=== PATIENT | male | born 1940 | race Caucasian/White ===

== ENCOUNTER → 2017-05-24 | Outpatient (CLI) | payer OTHER ==
[~2017-05-24] MED LIST: GLUCOSAMINE; LISINAPRIL; ULORIC; WARFARIN
[2017-05-24 09:45] LABS: Basophils # (auto) 0 uL; Basophils % (auto) 0.4 % (0.0-2.0); Eosinophils # (auto) 0.5 uL; Eosinophils % (auto) 4.9 % (0.0-7.0); Hematocrit 47.2 % (41.0-53.0); Hemoglobin 16.1 g/dL (13.5-17.5); Lymphocytes # (auto) 1.3 uL; Lymphocytes % (auto) 13.3 % (10.0-50.0); Mean Corpuscular Hemoglobin 31.7 pg (28.0-32.0); Mean Corpuscular Volume 93.2 fL (80.0-100.0); Mean Platelet Volume 7.7 fL (6.9-10.8); Monocytes # (auto) 0.8 uL; Monocytes % (auto) 7.9 % (0.0-12.0); Neutrophils # (auto) 7.5 uL; Neutrophils % (auto) 73.5 % (37.0-80.0); Platelet Count (auto) 130 10^3/uL (140-450); White Blood Cell 10.1 10^3/uL (4.4-10.8)
[2017-05-24 10:03] LABS: Urine Bilirubin Negative (Negative); Urine Blood 1+ /uL (Negative); Urine Color Yellow (Yellow); Urine Glucose Normal (Normal); Urine Ketone Negative (Negative); Urine Mucus FEW (None Seen); Urine Nitrite Negative (Negative); Urine RBC 5 /hpf (0 - 3); Urine Squamous Epithelial Cell FEW /hpf (<5); Urine Urobilinogen Normal (Negative); Urine pH 5.5 (5.0-8.0)
[2017-05-24 10:13] LABS: Albumin 3.5 g/dL (3.4-5.0); BUN/Creatinine Ratio 15.9; Bilirubin, Total 0.9 mg/dL (0.2-1.0); Calcium 8.7 mg/dL (8.5-10.1); Potassium 4.4 mmol/L (3.5-5.1); Total Protein 7.1 g/dL (6.4-8.2); Uric Acid 8.7 mg/dL (3.5-7.2)
== END | disposition home or self-care (01) ==
LOC: LAB 09:16
PROVIDERS: ATTEND Family Medicine
DX: I10 Essential (primary) hypertension (principal); M10.9 Gout, unspecified
CPT/HCPCS: 36415; 80053; 80061; 81001; 84550; 85025

== ENCOUNTER → 2017-07-17 | Outpatient (CLI) | payer OTHER | END | disposition home or self-care (01) | LOC: LAB 10:00 | DX: L08.9 Local infection of the skin and subcutaneous tissue, unspecified (principal) ==

== ENCOUNTER 2017-09-15 14:18 | Emergency (ER) | payer OTHER ==
[~2017-09-15] VITALS: Ht 165.1 cm; Wt 63.5 kg
[2017-09-15 16:18] VITALS: BP 167/87
== END 2017-09-15 16:58 | disposition home or self-care (01) ==
LOC: ER 14:27
DX: S00.83XA Contusion of other part of head, initial encounter (principal); L72.0 Epidermal cyst; J44.9 Chronic obstructive pulmonary disease, unspecified; I10 Essential (primary) hypertension; F17.210 Nicotine dependence, cigarettes, uncomplicated; W01.0XXA Fall on same level from slipping, tripping and stumbling without subsequent striking against object, initial encounter; Y93.89 Activity, other specified; Y99.8 Other external cause status; Y92.89 Other specified places as the place of occurrence of the external cause
CPT/HCPCS: 70450

== ENCOUNTER 2025-02-16 13:52 | Emergency (ER) | payer OTHER ==
[~2025-02-16] VITALS: Ht 165.1 cm; Wt 60.3 kg
--- NOTE | 2025-02-16 15:13 | ED.PDOC ---
GI ASSESSMENT HPI Comments 84 y.o male presents to the ED for a chief complaint of constipation with last BM being 6 days ago. Patient reports now complains of generalized abdominal pain with nausea and is unable to eat due to fear of pain increasing. Patient has been taking two stool softeners per day including today and had no relief. Additionally, patient took Miralax and 2 suppositories prior to coming into the ED and had no relief. He denies any vomiting, fever, chills. Patient was recently diagnosed with Parkinson's and was told by PCP that constipation is common with dx. He has been hydrating himself well at home. Chief Complaint: Constipation Time Seen by : 15:00 Primary Care Provider: IVONE Reviewed Notes: Nurses Notes, Medications, Allergies Allergies: Coded Allergies: NO KNOWN ALLERGIES (Unverified , 02/16/25) Home Meds Active Scripts Levofloxacin Hemihydrate (LEVOFLOXACIN) 250 Mg Tab, 250 MG PO DAILY for 10 Days, #10 TAB Prov:SEJAL MANNING MD 02/16/25 Polyethylene Glycol (Miralax) 17 Gm/Scoop Pow, 17 GM GT DAILY for 90 Days, #1 POW Prov:SEJAL MANNING MD 02/16/25 Sennosides-Docusate Sodium (Senokot S) 1 Tab Tab, 1 TAB PO BID, #30 TAB Prov:SEJAL MANNING MD 02/16/25 Ondansetron Odt 4MG Tab (ZOFRAN PO) 4 Mg Tb, 4 MG PO TID PRN for 5 Days, #15 TAB ODT TAB-DISSOLVE IN MOUTH, THEN SWALLOW Prov:SEJAL MANNING MD 02/16/25 Reported Medications [Glucosamine] No Conflict Check, BID 06/15/10 [Uloric] No Conflict Check, DAILY 06/15/10 [Lisinapril] No Conflict Check, DAILY 06/15/10 [Warfarin] No Conflict Check, DAILY 06/15/10 Information Source: Patient, Spouse Mode of Arrival: Ambulatory Timing: Days (6) Duration: Since onset Quality: Aching Vomitus: None Stool: Empty Severity: Moderate Recent: None Recent Hx of: None Pain Location: Diffuse Modifying Factors: Nothing Associated sign and symptoms: Nausea, Constipation, Abdominal Pain Past Medical History PAST MEDICAL HISTORY: COPD, HTN, Kidney Stones Past Medical History (Other): Rheumatoid arthritis, Factor 5 Leiden, Parkinsons Surgical History (Other): Vasectomy Family History Family History: Reviewed,noncontributory to illness Social History Smoker: Non-Smoker Alcohol: Denies ETOH Use Drugs: Denies Drug Use Lives In: Home Constitutional: denies: chills, diaphoresis, fatigue, fever, malaise, sweats, weakness, others EENTM: denies: blurred vision, double vision, ear bleeding, ear discharge, ear drainage, ear pain, ear ringing, eye pain, eye redness, hearing loss, mouth pain, mouth swelling, nasal discharge, nose bleeding, nose congestion, nose pain, photophobia, tearing, throat pain, throat swelling, voice changes, others Respiratory: denies: cough, hemoptysis, orthopnea, SOB at rest, shortness of breath, SOB with excertion, stridor, wheezing, others Cardiovascular: denies: chest pain, dizzy spells, diaphoresis, Dyspnea on exertion, edema, irregular heart beat, left arm pain, lightheadedness, palpitations, PND, syncope, others Gastrointestinal: reports: abdominal pain, constipated, nausea; denies: abdomen distended, blood streaked bowels, diarrhea, dysphagia, difficulty swallowing, hematemesis, melena, poor appetite, poor fluid intake, rectal bleeding, rectal pain, vomiting, others Genitourinary: denies: burning, dysuria, flank pain, frequency, hematuria, incontinence, penile discharge, penile sore, pain, testicle pain, testicle swelling, urgency, others Neurological: denies: dizziness, fainting, headache, left sided numbness, left sided weakness, numbness, paresthesia, pre-existing deficit, right sided numbness, right sided weakness, seizure, speech problems, tingling, tremors, weakness, others Musculoskeletal: denies: back pain, gout, joint pain, joint swelling, muscle pain, muscle stiffness, neck pain, others Integumetry: denies: bruises, change in color, change in hair/nails, dryness, laceration, lesions, lumps, rash, wounds, others Allergic/Immunocompromised: denies: Difficulty Healing, Frequent Infections, Hives, Itching, others Hematologic/Lymphatic: denies: anemia, blood clots, easy bleeding, easy bruising, swollen glands, others Endocrine: denies: excessive hunger, excessive sweating, excessive thirst, excessive urination, flushing, intolerance to cold, intolerance to heat, unexplained weight gain, unexplained weight loss, others Psychiatric: denies: anxiety, bipolar disorder, depression, hopeless, panic disorder, schizophrenia, sleepless, suicidal, others All Other Systems: Reviewed and Negative Physical Exam General Appearance: No Apparent Distress HEENT: Other (Pupils and face symmetric. Dry mucous membranes.) Neck: Full Range of Motion, Normal Inspection Respiratory: Lungs Clear, No Accessory Muscle Use, No Respiratory Distress, Normal Breath Sounds Cardiovascular: No Edema, No JVD, Regular Rate/Rhythm Breast Exam: Deferred Gastrointestinal: Diffuse, Distended, Soft, Tenderness Genitalia: Deferred Pelvic: Deferred Rectal: Deferred Extremities: Normal inspection, Normal range of motion, Non-tender, No pedal edema Neurologic: Alert (Oriented x4), Normal Affect, Normal Mood, Other (Moves all extremities and follows commands. No gross focal deficit.) Cerebellar Function: NOT DONE Reflexes: NOT DONE Skin: Dry, Normal Color, Warm Lymphatic: NOT DONE Was a procedure done? Was a procedure done?: No GI differential Dx Differential Diagnosis: Bowel Obstruction, Constipation, Diverticular disease, Inflammatory BD, Ischemic Bowel, Dehydration, Electrolyte Imbalance, Bacterial, Viral, Impaction, Renal Failure X-Ray, Labs, Meds, VS Vital Signs Date Time Temp Pulse Resp B/P (MAP) Pulse Ox O2 Delivery O2 Flow Rate FiO2 02/16/25 23:28 79 17 160/76 (104) 98 02/16/25 23:28 17 98 Room Air* 0 21 02/16/25 20:53 98.2 98 16 137/73 (94) 97 98.2 02/16/25 18:01 99.4 92 16 152/62 (92) 96 99.4 02/16/25 13:53 97.1 75 16 181/73 99 97.1 Lab Test 02/16/25 17:23 02/16/25 15:17 Range/Units White Blood Count 9.8 4.4-10.8 10^3/uL Red Blood Count 4.66 4.5-5.90 10^6/uL Hemoglobin 15.1 13.5-17.5 g/dL Hematocrit 44.1 41.0-53.0 % Mean Corpuscular Volume 94.5 80.0-100.0 fL Mean Corpuscular Hemoglobin 32.5 H 28.0-32.0 pg Mean Corpuscular Hemoglobin Concent 34.4 32.0-36.0 g/dL Red Cell Distribution Width 14.4 H 11.8-14.3 % Platelet Count 129 L 140-450 10^3/uL Mean Platelet Volume 8.0 6.9-10.8 fL Neutrophils (%) (Auto) 83.9 H 37.0-80.0 % Lymphocytes (%) (Auto) 8.7 L 10.0-50.0 % Monocytes (%) (Auto) 6.1 0.0-12.0 % Eosinophils (%) (Auto) 0.7 0.0-7.0 % Basophils (%) (Auto) 0.6 0.0-2.0 % Neutrophils # (Auto) 8.2 1.6-8.6 10 ^3/uL Lymphocytes # (Auto) 0.8 0.4-5.4 10 ^3/uL Monocytes # (Auto) 0.6 0-1.3 10 ^3/uL Eosinophils # (Auto) 0.1 0-0.8 10 ^3/uL Basophils # (Auto) 0.1 0-0.2 10 ^3/uL Nucleated Red Blood Cells 0.0 % Sodium Level 141 136-145 mmol/L Potassium Level 4.5 3.5-5.1 mmol/L Chloride Level 108 H 98-107 mmol/L Carbon Dioxide Level 23 20-31 mmol/L Anion Gap 10 5-15 Blood Urea Nitrogen 26 H 9-23 mg/dL Creatinine 1.53 H 0.700-1.30 mg/dL Glomerular Filtration Rate Calc 45 >90 mL/min BUN/Creatinine Ratio 17.0 10.0-20.0 Serum Glucose 86 74-106 mg/dL Calcium Level 9.1 8.7-10.4 mg/dL Total Bilirubin 0.9 0.2-1.0 mg/dL Aspartate Amino Transferase (AST) 26 13-40 U/L Alanine Aminotransferase (ALT) < 9 7-40 U/L Alkaline Phosphatase 92 46-116 U/L Total Protein 6.5 5.7-8.2 g/dL Albumin 4.1 3.2-4.8 g/dL Lipase 37 12-53 U/L Urine Color Light-orange Yellow Urine Clarity Ex.turbid Clear Urine pH 5.5 5.0-9.0 Urine Specific [place] 1.012 1.001-1.035 Urine Protein 1+ H Negative Urine Ketones Negative Negative Urine Blood 3+ H Negative /uL Urine Nitrite Negative Negative Urine Bilirubin Negative Negative Urine Urobilinogen Normal Negative mg/dL Urine Leukocyte Esterase Negative Negative /uL Urine RBC 413 0 - 3 /hpf Urine Microscopic WBC 5 H 0-3 /HPF Urine Squamous Epithelial Cells Few <5 /hpf Urine Amorphous Crystals Few None Seen /hpf Urine Bacteria Few H None Seen /hpf Urine Mucus Few None Seen Urine Glucose Normal Normal mg/dL Current Medications Medications (Trade) Dose Ordered Sig/Denise Route Start Time Stop Time Status Last Admin Ondansetron HCl (Zofran Po) 4 mg ONCE ONCE PO 02/16/25 15:45 02/16/25 15:46 DC 02/16/25 23:18 Ceftriaxone Sodium 50 ml @ 100 mls/hr ONCE ONCE IV 02/16/25 18:30 02/16/25 18:59 DC 02/16/25 23:15 Sodium Chloride 1,000 ml @ 1,000 mls/hr Q1H ONCE IV 02/16/25 22:30 02/16/25 23:29 DC 02/16/25 22:30 PROCEDURE(s): ABPL - CT AB PEL WO CON-NO ORAL OR IV REASON: diffuse abd pain,nausea, no bm x 6d ORDER NUMBER(s): [id number], ACCESSION NUMBER(s): [id number] CLINICAL INFORMATION: Diffuse abdominal pain and nausea. TECHNIQUE: Axial CT images of the abdomen and pelvis were obtained without IV contrast. Coronal and sagittal reformatted images were obtained, reviewed, and stored. Evaluation of the parenchymal organs is limited without IV contrast. Evaluation of the bowel and mesentery is limited without oral contrast. All CT scans at this medical facility are performed using dose modulation techniques as appropriate to a performed exam including the following: Automated exposure control was utilized; adjustment of the MA and/or KV according to patient size; and use of iterative reconstruction technique. CTDIvol = 5.11 mGy DLP = 246.22 mGy-cm COMPARISON: None FINDINGS: Motion limited study. Lung bases: Atelectasis in the lung bases. Liver: Grossly unremarkable in its noncontrast enhanced appearance. No abnormal density or focal lesion identified. Biliary: No calcified gallstones or biliary ductal dilatation. Spleen: Unremarkable. Pancreas: Grossly unremarkable in its noncontrast enhanced appearance. Adrenal glands: 1.2 cm left adrenal nodule, most likely an adenoma. Kidneys: No hydronephrosis. No renal or ureteral calculi. Ovoid hyperdense structure at the inferior pole of the left kidney measuring up to 1.2 cm, possibly a proteinaceous parapelvic cyst. Aorta/Vascular: Dense atherosclerotic calcification. No abdominal aortic aneurysm. Retroperitoneum: No mass or lymphadenopathy. Bowel/mesentery: No small bowel obstruction. No free air or free fluid. Appendix is visualized and appears unremarkable. Large amount of stool throughout the colon consistent with constipation, most prominent in the right colon. Pelvic organs: Enlarged prostate with impression on the bladder base. Bladder: Moderate circumferential thickening of the bladder wall. Abdominal wall: Small fat containing umbilical hernia. Bones: No acute fracture or suspicious intraosseous lesion. IMPRESSION: 1. Motion limited study. 2. Large amount of stool in the colon suggesting constipation. 3. Enlarged prostate. 4. Moderate circumferential thickening of the bladder wall is nonspecific. Correlate clinically to exclude cystitis. 5. Hyperdense lesion in the left kidney, most likely hyperdense cyst, although not optimally evaluated on this exam. Ultrasound could be considered to further characterize. If ultrasound findings are inconclusive, dedicated renal mass protocol CT or MRI could be considered. 6. Left adrenal nodule is most likely an adenoma. X-Ray, Labs, Meds, VS Comment 84-year-old male with a history of Parkinson's, CKD, factor 5 Leiden, RA, COPD, hypertension and kidney stones complaining of diffuse abdominal pain, constipation and nausea Vitals remarkable for BP 181/73 Exam remarkable for diffuse abdominal tenderness and mild distention Rhythm strip independently interpreted by me: Sinus rhythm, rate 95, no ectopy. CT abdomen and pelvis consistent with constipation CBC unremarkable, CMP and lipase pending, UA abnormal consistent with UTI Patient treated with the following in the ED: Bentyl 20 mg IM, Zofran ODT 4 mg p.o., Rocephin 1 g IV Fleet enema was ordered, p.o. GoLYTELY was ordered On re-evaluation, patient appears comfortable. Exam is unchanged. Plan was to admit the patient for bowel decompression, as he has failed outpatient treatment with stool softeners, laxatives and suppositories, and IV antibiotics to treat his UTI. Case discussed with Dr. Mills, who wanted the patient to be observed in the ED until he had a bowel movement. evaluated the patient in the ED and discharged him. Time of 1ST Reevaluation: 15:13 Reevaluation 1ST: Unchanged Patient Education/Counseling: Diagnosis, Treatment, Prognosis Family Education/Counseling: No Family Present SEPSIS Sepsis Screen Date sepsis recognized/suspect: Feb 16, 2025 Time Sepsis recognized/suspect: 1353 Recent Procedure: No On Antibiotic Therapy: No Respiratory Rate >20: No Heart Rate >90: No Temp<36 C (96.8 F) or >38.3 C: No SBP <90 or MAP <65 mmHG: No New Acute Mental Status Change: No Is the patient on CPAP, BIPAP,: No Physician Orders Ct Ab Pel Wo Con-No Oral Or Iv (02/16/25 15:34) Discharge (02/16/25 22:48) Vital Signs Date Time Temp Pulse Resp B/P (MAP) Pulse Ox O2 Delivery O2 Flow Rate FiO2 02/16/25 23:28 79 17 160/76 (104) 98 02/16/25 23:28 17 98 Room Air* 0 21 02/16/25 20:53 98.2 98 16 137/73 (94) 97 98.2 02/16/25 18:01 99.4 92 16 152/62 (92) 96 99.4 02/16/25 13:53 97.1 75 16 181/73 99 97.1 Laboratory Tests Test 02/16/25 17:23 White Blood Count 9.8 10^3/uL (4.4-10.8) Medications Medications Dose Ordered Sig/Denise Route Start Time Stop Time Status Last Admin Dose Admin Ceftriaxone Sodium 50 ml @ 100 mls/hr ONCE ONCE IV 02/16/25 18:30 02/16/25 18:59 DC 02/16/25 23:15 Ondansetron HCl 4 mg ONCE ONCE PO 02/16/25 15:45 02/16/25 15:46 DC 02/16/25 23:18 Sodium Chloride 1,000 ml @ 1,000 mls/hr Q1H ONCE IV 02/16/25 22:30 02/16/25 23:29 DC 02/16/25 22:30 Departure 1 Departure Time of Disposition: 18:23 Impression: Primary Impression: Abdominal pain Additional Impressions: Constipation UTI (urinary tract infection) Disposition: HOME / SELF CARE / HOMELESS Condition: Fair e-Prescriptions Levofloxacin Hemihydrate (LEVOFLOXACIN) 250 Mg Tab 250 MG PO DAILY for 10 Days, #10 TAB Prov: SEJAL MANNING MD 02/16/25 Polyethylene Glycol (Miralax) 17 Gm/Scoop Pow 17 GM GT DAILY for 90 Days, #1 POW Prov: SEJAL MANNING MD 02/16/25 Sennosides-Docusate Sodium (Senokot S) 1 Tab Tab 1 TAB PO BID, #30 TAB Prov: SEJAL MANNING MD 02/16/25 Ondansetron Odt 4MG Tab (ZOFRAN PO) 4 Mg Tb 4 MG PO TID PRN for 5 Days, #15 TAB ODT TAB-DISSOLVE IN MOUTH, THEN SWALLOW Prov: SEJAL MANNING MD 02/16/25 Discharged With: Spouse Critical Care Note Critical Care Time?: No Stability Stability form required: No I personally scribed for MARIO GONZALES MD ([facility] on 02/16/25 at 15:13. Electronically submitted by Natividad Cuevas ([facility]). MARIO GONZALES MD Feb 16, 2025 15:13
[2025-02-16] MEDS ORDERED: DICYCLOMINE HCL (10MG/ML) 2 ML AMPULE IM ONE (15:45)
--- NOTE | 2025-02-16 17:04 | DVH ---
CLINICAL INFORMATION: Diffuse abdominal pain and nausea. TECHNIQUE: Axial CT images of the abdomen and pelvis were obtained without IV contrast. Coronal and s agittal reformatted images were obtained, reviewed, and stored. Evaluation of the parenchymal organs is limited without IV contrast. Evaluation of the bowel and mesentery is limited without oral contras t. All CT scans at this medical facility are performed using dose modulation techniques as appropriat e to a performed exam including the following: Automated exposure control was utilized; adjustment of the MA and/or KV according to patient size; and use of iterative reconstruction technique. CTDIvol = 5.11 mGy DLP = 246.22 mGy-cm COMPARISON: None FINDINGS: Motion limited study. Lung bases: Atelectasis in the lung bases. Liver: Grossly unremarkable in its noncontrast enhanced appearance. No abnormal density or focal lesi on identified. Biliary: No calcified gallstones or biliary ductal dilatation. Spleen: Unremarkable. Pancreas: Grossly unremarkable in its noncontrast enhanced appearance. Adrenal glands: 1.2 cm left adrenal nodule, most likely an adenoma. Kidneys: No hydronephrosis. No renal or ureteral calculi. Ovoid hyperdense structure at the inferior pole of the left kidney measuring up to 1.2 cm, possibly a proteinaceous parapelvic cyst. Aorta/Vascular: Dense atherosclerotic calcification. No abdominal aortic aneurysm. Retroperitoneum: No mass or lymphadenopathy. Bowel/mesentery: No small bowel obstruction. No free air or free fluid. Appendix is visualized and ap pears unremarkable. Large amount of stool throughout the colon consistent with constipation, most pr ominent in the right colon. Pelvic organs: Enlarged prostate with impression on the bladder base. Bladder: Moderate circumferential thickening of the bladder wall. Abdominal wall: Small fat containing umbilical hernia. Bones: No acute fracture or suspicious intraosseous lesion. IMPRESSION: 1. Motion limited study. 2. Large amount of stool in the colon suggesting constipation. 3. Enlarged prostate. 4. Moderate circumferential thickening of the bladder wall is nonspecific. Correlate clinically to ex clude cystitis. 5. Hyperdense lesion in the left kidney, most likely hyperdense cyst, although not optimally evaluate d on this exam. Ultrasound could be considered to further characterize. If ultrasound findings are in conclusive, dedicated renal mass protocol CT or MRI could be considered. 6. Left adrenal nodule is most likely an adenoma.
[2025-02-16 17:13] LABS: Urine Amorphous Crystal FEW /hpf (None Seen); Urine Protein, UAD 1+ (Negative)
[2025-02-16 17:42] LABS: Hematocrit 44.1 % (41.0-53.0); Hemoglobin 15.1 g/dL (13.5-17.5); Mean Corpuscular Hemoglobin 32.5 pg (28.0-32.0); Mean Corpuscular Volume 94.5 fL (80.0-100.0); Nucleated Red Blood Cells % 0.0 %
[2025-02-16 18:05] LABS: Albumin 4.1 g/dL (3.2-4.8); Alkaline Phosphatase 92 U/L (46-116); Anion Gap 10 (5-15); BUN/Creatinine Ratio 17.0 (10.0-20.0); Bilirubin, Total 0.9 mg/dL (0.2-1.0); Calcium 9.1 mg/dL (8.7-10.4); Carbon Dioxide 23 mmol/L (20-31); Glucose 86 mg/dL (74-106); Lipase 37 U/L (12-53); Potassium 4.5 mmol/L (3.5-5.1); Sodium 141 mmol/L (136-145); Total Protein 6.5 g/dL (5.7-8.2)
[2025-02-16] MEDS ORDERED: FLEET ENEMA(ADULT) 135 ML PR ONE (18:30)
[2025-02-16 18:35] LABS: Alanine Aminotransferase < 9 U/L (7-40); Blood Urea Nitrogen 26 mg/dL (9-23); Chloride 108 mmol/L (98-107)
[2025-02-16 20:53] VITALS: TEMP 98.2
[2025-02-16] MEDS: SODIUM CHLORIDE 0.9% 1,000 ML IV ONE (22:30)
[2025-02-16] MEDS ORDERED: POLY33505 GT (22:56)
[2025-02-16] MEDS ORDERED: SENN-62 PO (22:56)
[2025-02-16] MEDS ORDERED: LEVO250T58 PO (22:56)
[2025-02-16] MEDS ORDERED: ZOFR4T PO (22:56)
[2025-02-16] MEDS: ONDANSETRON ODT 4 MG TAB PO ONE (23:18)
[2025-02-16] MEDS ORDERED: ONDANSETRON ODT 4 MG TAB ONE (23:20)
[2025-02-16] MEDS: GOLYTELY 4L KIT PO ONE (23:25)
[2025-02-16 23:28] VITALS: BP 160/76; PULSE 79; RESP 17; O2SAT 98
--- NOTE | 2025-02-17 12:19 | DVHINCON2 ---
DATE OF CONSULTATION: 02/17/2025 CHIEF COMPLAINT: Coming in for constipation and abdominal pain. 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 The patient says he typically has a bowel movement every other day. It has been about six days since his last bowel movement. He is taking some stool softeners that his had given him last three days. He says as of this afternoon when he showed up to the Emergency Room, his daily pain has kind of gone away and he is feeling improved. He did have some nausea and vomiting earlier in the morning that has resolved. The patient denies any fevers or chills, any bloody or tarry stools, any chest pain, shortness of breath, cough, phlegm, or any types of symptoms of dizziness. He does seem to be slightly dehydrated, says he has not drank enough fluids today. Otherwise, he is feeling overall improved since he arrived here to the Emergency Room. PAST MEDICAL HISTORY: Benign prostate hypertrophy, Parkinson's disease, factor V Leiden mutation, history of DVTs, on Coumadin. PAST SURGICAL HISTORY: Vasectomy. SOCIAL HISTORY: No tobacco. No alcohol. No illicit drugs. MEDICATIONS AT HOME: Per medical reconciliation. MEDICATION ALLERGIES: No known drug allergies. REVIEW OF SYSTEMS: A 10-point review of systems was covered with the patient and was negative with the exception to what was present in history of present illness. PHYSICAL EXAMINATION: VITAL SIGNS: Temp 97.1, pulse rate 75, respiratory rate 17, blood pressure 160/76, pulse ox 98% on room air. GENERAL: Alert and oriented x 4, not in acute distress male wearing hearing aids. HEENT: Normocephalic, atraumatic. Extraocular muscles intact. Pupils are equally round reactive to light and accommodation. Mucous membranes are dry. CARDIOVASCULAR: S1 and S2 positive. Regular rate and rhythm. No rubs, gallops, or murmurs. LUNGS: Seem to be clear to auscultation bilaterally. No wheezes, rhonchi, or rales. ABDOMEN: Soft, nontender, nondistended. Positive bowel sounds. No guarding. No rebound. EXTREMITIES: No lower extremity edema, clubbing, or cyanosis. NEUROLOGIC: No focal deficits. Cranial nerve testing 2-12 overall seems to be intact with the exception of sensorineural hearing loss bilaterally. LABORATORY WORKUP: The patient's white count 9.8, H and H of 15.1 and 44.1, platelet count of 129,000, there is a slight neutrophil shift of 83.9. Sodium 141, potassium 4.5, chloride 108, carbon dioxide of 23, anion gap of 10, BUN of 26, creatinine 1.53, calcium 9.1, glucose of 86, AST of 26, ALT of less than 9, alkaline phos of 92. Lipase of 37. Urinalysis shows 3+ blood, nitrites negative, leukocyte esterase negative, urine RBCs of 413 microscopic, WBCs of 5. IMAGING WORKUP: A CT abdomen and pelvis was completed. Impression shows motion limited study, large amount of stool in the colon suggesting constipation, enlarged prostate, moderate circumferential thickening of the bladder wall is nonspecific, correlate clinically to exclude cystitis, hyperdense lesion in the left kidney most likely hyperdense cyst, although not optimally evaluated on this exam. Ultrasound could be considered to further characterize. If ultrasound findings are not conclusive, a dedicated renal mass protocol CT or MRI could be considered. Left adrenal nodule is most likely an adenoma. DIAGNOSES: * Constipation. * Cystitis. * Left kidney nodule. PLAN: The patient was seen on the Emergency Room floor. Assessment was completed. The patient currently having abdominal pain induced by constipation for about six days. The patient's abdominal pain seems to have resolved. The patient not having any abdominal tenderness. Abdomen seems to be soft. Bowel sounds are present. The patient not having any symptoms of nausea or vomiting at this point in time. The patient has been ordered a bowel regimen with MiraLAX 17 grams in 4-8 ounces daily as well as Senokot-S one tablet twice a day to be held if more than two soft stools per day. The patient additionally was found to have microscopic hematuria with ____ of CT findings of bladder wall thickening possibly indicating cystitis. However, the patient did not have any suprapubic pain on palpation and denied any urinary frequency, urgency, or burn sensation. Despite this, the patient will be treated for a 10-day course of possibility of underlying cystitis with Levaquin 250 p.o. daily. A referral to Urology will be given, given these findings of thickened bladder wall as well as prostate hypertrophy for evaluation and resolution of the patient's microscopic hematuria. Additionally, during his CT examination of his abdomen, he was found to have a left kidney nodule, possibly a cyst. However, it cannot be specified. Radiology recommending the patient to have a dedicated outpatient renal ultrasound for further assessment which will be ordered through [employer]. The patient will be also arranged for a PCP followup in the next three to five days. The patient to return to the Emergency Room in case of any fevers or chills, any recurrences of abdominal pain, bloody or tarry stools, nausea, vomiting, or any other concerning signs and/or symptoms. Aman Garcia MD LM/ANGEL/WILIAM TID: [id number] RECEIPT: [id number]
== END 2025-02-17 00:38 | disposition home or self-care (01) ==
LOC: ER 13:52
DX: N39.0 Urinary tract infection, site not specified (principal); R10.84 Generalized abdominal pain; K59.00 Constipation, unspecified; J44.9 Chronic obstructive pulmonary disease, unspecified; I10 Essential (primary) hypertension; Z79.899 Other long term (current) drug therapy
CPT/HCPCS: 36415; 74176; 80053; 81001; 83690; 85025; 96361; 96365; 99285; J0696; J7030; Q0162

== ENCOUNTER 2025-02-17 21:34 | Emergency (ER) | payer OTHER ==
[~2025-02-17] VITALS: Ht 165.1 cm; Wt 70.3 kg
[~2025-02-17 21:34] MED LIST changes: +LEVO250T58 PO; +POLY33505 GT; +SENN-62 PO; +ZOFR4T PO
--- NOTE | 2025-02-17 23:55 | DVH ---
CLINICAL HISTORY: b/l flank pain, constipation TECHNIQUE: CT of the abdomen and pelvis was performed without IV contrast. This exam was performed ac cording to our departmental dose optimization program. Up-to-date CT equipment and radiation dose red uction techniques are utilized as appropriate. CTDI 5.1 DLP 267.3 COMPARISON: CT CT AB PEL WO CON-NO ORAL OR IV on DOS: 02/16/25 FINDINGS: Abdomen/Pelvis: The spleen, pancreas, adrenal glands, kidneys, gallbladder, and liver are grossly unremarkable. The prostate gland is moderately enlarged, measuring 5.5 cm in diameter. The bladder is not well dist ended and therefore not well evaluated. The abdominal aorta is normal in course and caliber. There are [id number] aortic atheroscleroti c calcifications. There is no free intraperitoneal air or fluid. There is no enlarged abdominal pelvic lymph node. There is no bowel wall thickening or dilatation. The probable appendix is normal. Regardless, there i s no focal inflammatory process in it's expected location. There is a moderate amount of stool in the colon. Other: The imaged lower thorax demonstrates 3 vessel coronary artery and aortic valvular calcifications. No acute osseous abnormality is evident. Impression: No acute noncontrast CT abnormality in the abdomen or pelvis. Constipation. Moderate prostatomegaly. Aortic valvular and 3 vessel coronary artery calcifications.
[2025-02-18 00:20] LABS: Hematocrit 45.1 % (41.0-53.0); Hemoglobin 15.2 g/dL (13.5-17.5); Mean Corpuscular Hemoglobin 31.9 pg (28.0-32.0); Mean Corpuscular Volume 94.6 fL (80.0-100.0); Nucleated Red Blood Cells % 0.0 %
[2025-02-18 00:35] LABS: Albumin 4.5 g/dL (3.2-4.8); Alkaline Phosphatase 94 U/L (46-116); Anion Gap 10 (5-15); BUN/Creatinine Ratio 15.5 (10.0-20.0); Calcium 9.4 mg/dL (8.7-10.4); Carbon Dioxide 26 mmol/L (20-31); Chloride 103 mmol/L (98-107); Glucose 103 mg/dL (74-106); Potassium 4.8 mmol/L (3.5-5.1); Sodium 139 mmol/L (136-145); Total Protein 7.2 g/dL (5.7-8.2)
[2025-02-18 00:36] LABS: Bilirubin, Total 0.7 mg/dL (0.2-1.0)
--- NOTE | 2025-02-18 00:48 | ED.PDOC ---
GI ASSESSMENT HPI Comments HPI: Poor Historian. 84-year-old male accompanied by his presents to the emergency department for evaluation of bilateral flank pain lower abdominal pain and hematuria in constipation. Last bowel movement was last Monday. Patient was seen here yesterday for the same symptoms and was diagnosed with a UTI and was discharged by the hospitalist with treatment for antibiotics and laxative. Patient returns today saying he has been taking all his medications as prescribed but he still has not had a bowel movement and he feels worse today with bilateral flank pain. Still no bowel movement. 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 EARS: Denies acute: tinnitus, hearing loss, ear discharge, ear pain, THROAT: Denies acute: sore throat, swelling, difficulty swallowing , pain with swallowing, change in voice. NECK: Denies acute: neck pain, neck swelling, stiff neck. HEART: Denies acute : chest pain, palpitations, LUNGS: Denies acute: SOB, wheezing, cough, hemoptysis ABDOMEN: Denies acute: , Nausea, Vomiting, diarrhea, melena , hematemesis, hematochezia SKIN: Denies acute: rash, redness, lesions, itchiness. EXTREMITIES: Denies acute: calf pain, numbness, tingling, weakness, denies pain in extremity. Denies acute: Low back pain. Neuro: Denies acute: focal neurological deficit, motor or sensory focal neurological deficit, tremors, seizure like activity, confusion, dizziness, change in mental status, loss of bowel or bladder function, cauda equina like symptoms. : Denies acute: dysuria, PSYCH: Denies acute: hallucination, suicidal ideation, homicidal ideation. PHYSICAL EXAM: General: ----moderate----acute distress, awake and alert. Head: normocephalic, atraumatic. Neck: supple, trachea is midline, no swelling. Throat: Normal phonation. Eyes:, no erythema, no purulent discharge, no proptosis, no icterus. Heart: regular rate, regular rhythm, no significant murmur appreciated. Lungs: no apparent respiratory distress, Able to speak in full sentences. No wheezing, no rhonchi, no crackles. No stridors Clear to auscultation bilaterally. Abdomen: Generalized lower abdominal tender to palpation, non distended, soft, no guarding, no rebound, + bowel sounds. Neuro: Awake, Alert, oriented to name, self, situation, follows commands GCS=15. Speech is normal. Skin: no petechia, no purpura, no cyanosis, non-pale, not jaundice. Lower extremities: --no - Pitting edema no deformity, no focal swelling, no calf TTP. Makes eye contact. moves all four extremities. Face: no apparent facial droop. CVA tenderness to percussion bilaterally. Ambulating in the ED independently. ED COURSE: DISCLAIMER: This medical document was created using an electronic medical record system with voice recognition software and computerized dictation system. Although this document has been carefully reviewed, there might still be some phonetic and typographical errors. Occasional wrong-word or "sound-alike" substitutions may have occurred due to the inherent limitations of voice recognition software. These areas are purely typographical due to imperfections of the software programs and do not reflect any compromise in the patient's medical care. Please read the chart carefully and recognize, using context, where these substitutions have occurred. Chief Complaint: Flank Pain Time Seen by MD: 23:09 Primary Care Provider: IVONE Reviewed Notes: Allergies Allergies: Coded Allergies: NO KNOWN ALLERGIES (Unverified , 02/16/25) Home Meds Active Scripts Levofloxacin Hemihydrate (LEVOFLOXACIN) 250 Mg Tab, 250 MG PO DAILY for 10 Days, #10 TAB Prov:SEJAL MANNING MD 02/16/25 Polyethylene Glycol (Miralax) 17 Gm/Scoop Pow, 17 GM GT DAILY for 90 Days, #1 POW Prov:SEJAL MANNING MD 02/16/25 Sennosides-Docusate Sodium (Senokot S) 1 Tab Tab, 1 TAB PO BID, #30 TAB Prov:SEJAL MANNING MD 02/16/25 Ondansetron Odt 4MG Tab (ZOFRAN PO) 4 Mg Tb, 4 MG PO TID PRN for 5 Days, #15 TAB ODT TAB-DISSOLVE IN MOUTH, THEN SWALLOW Prov:SEJAL MANNING MD 02/16/25 Reported Medications [Glucosamine] No Conflict Check, BID 06/15/10 [Uloric] No Conflict Check, DAILY 06/15/10 [Lisinapril] No Conflict Check, DAILY 06/15/10 [Warfarin] No Conflict Check, DAILY 06/15/10 Information Source: Patient Mode of Arrival: Ambulatory Past Medical History PAST MEDICAL HISTORY: COPD, HTN, Kidney Stones Family History Family History: Reviewed,noncontributory to illness Social History Smoker: Non-Smoker Alcohol: Denies ETOH Use Drugs: Denies Drug Use Lives In: Home Was a procedure done? Was a procedure done?: No GI differential Dx Differential Diagnosis: Other (DDX include but not limited to diverticulitis, colitis, gastroenteritis, acute abdomen, SBO, enteritis, constipation, volvulus, appendicitis, Gallbladder disease, choledocolithiasis, ascending cholangitis, pancreatitis, intraAbdominal mass/neoplasm, hepatitis, UTI, pylonephritis, kidney stone, aneurysm, dissection, Inflammatory bowel disease, gastroparesis, ischemic bowel.) X-Ray, Labs, Meds, VS Vital Signs Date Time Temp Pulse Resp B/P (MAP) Pulse Ox O2 Delivery O2 Flow Rate FiO2 02/18/25 10:15 98.6 82 17 133/64 (87) 98 98.6 02/18/25 06:41 82 16 96 Room Air 02/18/25 06:41 98.5 79 16 158/72 (100) 96 98.5 02/18/25 02:56 98.2 72 17 160/66 (97) 99 98.2 02/17/25 21:37 99.0 86 19 146/89 98 99.0 Lab Test 02/18/25 04:14 02/18/25 02:07 02/18/25 00:48 02/18/25 00:00 Range/Units Troponin I High Sensitivity 21 24 25 </=54 ng/L Urine Color Brown H Yellow Urine Clarity Turbid H Clear Urine pH 5.5 5.0-9.0 Urine Specific [place] 1.014 1.001-1.035 Urine Protein 1+ H Negative Urine Ketones Trace Negative Urine Blood 3+ H Negative /uL Urine Nitrite Negative Negative Urine Bilirubin Negative Negative Urine Urobilinogen Normal Negative mg/dL Urine Leukocyte Esterase Trace Negative /uL Urine RBC 1616 0 - 3 /hpf Urine Microscopic WBC 28 H 0-3 /HPF Urine Squamous Epithelial Cells None seen <5 /hpf Urine Bacteria None seen None Seen /hpf Urine Mucus Few None Seen Urine Glucose Normal Normal mg/dL White Blood Count 10.4 4.4-10.8 10^3/uL Red Blood Count 4.77 4.5-5.90 10^6/uL Hemoglobin 15.2 13.5-17.5 g/dL Hematocrit 45.1 41.0-53.0 % Mean Corpuscular Volume 94.6 80.0-100.0 fL Mean Corpuscular Hemoglobin 31.9 28.0-32.0 pg Mean Corpuscular Hemoglobin Concent 33.7 32.0-36.0 g/dL Red Cell Distribution Width 14.4 H 11.8-14.3 % Platelet Count 144 140-450 10^3/uL Mean Platelet Volume 8.2 6.9-10.8 fL Neutrophils (%) (Auto) 83.1 H 37.0-80.0 % Lymphocytes (%) (Auto) 7.7 L 10.0-50.0 % Monocytes (%) (Auto) 7.5 0.0-12.0 % Eosinophils (%) (Auto) 0.9 0.0-7.0 % Basophils (%) (Auto) 0.8 0.0-2.0 % Neutrophils # (Auto) 8.7 H 1.6-8.6 10 ^3/uL Lymphocytes # (Auto) 0.8 0.4-5.4 10 ^3/uL Monocytes # (Auto) 0.8 0-1.3 10 ^3/uL Eosinophils # (Auto) 0.1 0-0.8 10 ^3/uL Basophils # (Auto) 0.1 0-0.2 10 ^3/uL Nucleated Red Blood Cells 0.0 % Sodium Level 139 136-145 mmol/L Potassium Level 4.8 3.5-5.1 mmol/L Chloride Level 103 98-107 mmol/L Carbon Dioxide Level 26 20-31 mmol/L Anion Gap 10 5-15 Blood Urea Nitrogen 30 H 9-23 mg/dL Creatinine 1.94 H 0.700-1.30 mg/dL Glomerular Filtration Rate Calc 34 >90 mL/min BUN/Creatinine Ratio 15.5 10.0-20.0 Serum Glucose 103 74-106 mg/dL Lactic Acid Level 1.4 0.4-2.0 mmol/L Calcium Level 9.4 8.7-10.4 mg/dL Total Bilirubin 0.7 0.2-1.0 mg/dL Aspartate Amino Transferase (AST) 48 H 13-40 U/L Alanine Aminotransferase (ALT) < 9 7-40 U/L Alkaline Phosphatase 94 46-116 U/L Total Protein 7.2 5.7-8.2 g/dL Albumin 4.5 3.2-4.8 g/dL Current Medications Medications (Trade) Dose Ordered Sig/Denise Route Start Time Stop Time Status Last Admin Sodium Biphosphate/ Sodium Phosphate 135 ml ONCE ONCE [place] 02/18/25 01:15 02/18/25 01:16 DC 02/18/25 10:21 Lactulose 30 ml ONCE ONCE PO 02/18/25 01:45 02/18/25 01:46 DC 02/18/25 06:49 Bisacodyl (Dulcolax Suppository) 10 mg ONCE ONCE NJ 02/18/25 01:45 02/18/25 01:46 DC 02/18/25 10:22 [place] [id number] Ph: [phone] DIAGNOSTIC IMAGING Diagnostic Imaging Report : [id number] Signed PATIENT: MARIANA LAIRD ACCT: [id number] UNIT: [id number] : 1940 LOC: ER ROOM / BED: / AGE / SEX: 84 / M ADM STATUS: REG ER SERVICE [id number] ORDERING PHYSICIAN: SHEILA KEANE DO PROCEDURE(s): ABPL - CT AB PEL WO CON-NO ORAL OR IV REASON: b/l flank pain, constipation ORDER NUMBER(s): [id number], ACCESSION NUMBER(s): [id number] CLINICAL HISTORY: b/l flank pain, constipation TECHNIQUE: CT of the abdomen and pelvis was performed without IV contrast. This exam was performed according to our departmental dose optimization program. Up-to-date CT equipment and radiation dose reduction techniques are utilized as appropriate. CTDI 5.1 DLP 267.3 COMPARISON: CT CT AB PEL WO CON-NO ORAL OR IV on DOS: 02/16/25 FINDINGS: Abdomen/Pelvis: The spleen, pancreas, adrenal glands, kidneys, gallbladder, and liver are grossly unremarkable. The prostate gland is moderately enlarged, measuring 5.5 cm in diameter. The bladder is not well distended and therefore not well evaluated. The abdominal aorta is normal in course and caliber. There are [id number] aortic atherosclerotic calcifications. There is no free intraperitoneal air or fluid. There is no enlarged abdominal pelvic lymph node. There is no bowel wall thickening or dilatation. The probable appendix is normal. Regardless, there is no focal inflammatory process in it's expected location. There is a moderate amount of stool in the colon. Other: The imaged lower thorax demonstrates 3 vessel coronary artery and aortic valvular calcifications. No acute osseous abnormality is evident. Impression: No acute noncontrast CT abnormality in the abdomen or pelvis. Constipation. Moderate prostatomegaly. Aortic valvular and 3 vessel coronary artery calcifications. ATED BY: CHRIS JOINER MD DICTATED DATE/TIME: 02/17/25 [id number] SIGNED BY: CHRIS JONIER MD SIGNED DATE/TIME: 02/17/252352 CC: Time of 1ST Reevaluation: 01:06 (The case was discussed with the admitting team (HPI, physical exam, labs and diagnostic tests that were available at the time of disposition, ED course, treatment plan) on the phone. They agreed to admit the patient to their service and assume care of this patient from this point forward. --- Francis. She requested to order an enema. ) Reevaluation 1ST: Unchanged Patient Education/Counseling: Diagnosis, Treatment Family Education/Counseling: Diagnosis, Treatment Comments MDM: patient presented with the above HPI.--bilateral flank pain and constipation----workup was initiated. patient was found with the above mentioned diagnosis. the following medications were ordered: please refer to order lists of meds and tests obtained by myself Dr. Keane. Patient ED course and VS have been stabilized. Patient has been reassessed in the ED and remained in a stable condition. Pertinent incidental findings were discussed with the patient and/or family. Patient/family voices understanding and is agreeable with plan. Patient has been observed in the ED adequate length of time to insure improvement/stability. Escalation of care considered: Consideration of escalation to observation or admission I spoke with the hospitalist team and urged them to admit the patient given his worsening of symptoms, However I was later made aware that the hospitalist discharge the patient from the ER. All the reports of any imaging studies that were ordered by myself were reviewed by myself. Departure 1 Departure Time of Disposition: 00:47 Impression: Primary Impression: Flank pain Additional Impressions: Constipation Enlarged prostate Abdominal pain Acute renal insufficiency Disposition: ADMITTED INPATIENT Admit to: Tele Condition: Guarded Discharged With: Self Critical Care Note Critical Care Time?: No SHEILA KEANE DO Feb 18, 2025 00:48
[2025-02-18 00:55] LABS: Alanine Aminotransferase < 9 U/L (7-40); Blood Urea Nitrogen 30 mg/dL (9-23)
[2025-02-18] MEDS ORDERED: SODIUM CHLORIDE 0.9% 1,000 ML IV ONE (01:15)
[2025-02-18 04:10] LABS: Urine Protein, UAD 1+ (Negative)
[2025-02-18] MEDS: LACTULOSE 20Gm/30ML SOLN PO ONE (06:49)
[2025-02-18 10:15] VITALS: BP 133/64; PULSE 82; RESP 17; TEMP 98.6; O2SAT 98
[2025-02-18] MEDS: FLEET ENEMA(ADULT) 135 ML PR ONE (10:21)
[2025-02-18] MEDS: BISACODYL 10 MG RECT SUPP PR ONE (10:22)
--- NOTE | 2025-02-19 08:07 | DVHDS2 ---
Physician Discharge Progress N Final Diagnosis: Constipation Prostate enlargement Operations or Procedures: Operations or Procedures none Other Interventions Other Interventions CT, lab results Consultations: Consultations none Commentary: Commentary 84 y.o. male was brought to the ER by his c/o abdominal pain with constipation and hematuria. Patient was seen here the day before for the same symptoms and was diagnosed with a UTI and was discharged with treatment for antibiotics and laxative. His CT scan showed no acute abnormalities, constipation and moderate prostate enlargement. Enema, Bisacodyl rectal and Lactulose were ordered. Patient was discharged to f/u with outpatient [facility] Condition on Discharge: Stable Disposition: Home SNF Discharge Will this Physician continue t: No Discharge Instructions: Diet: Cardiac 2g Na,low cholest Activity: No Restrictions, As Tolerated Follow Up/Referral: [facility] Medications: Continue medications that were prescribed after the previous ER visit Follow Up Care: Discharge Statement: "Patient was advised to return to the ER or call 911 if any headaches, dizziness, shortness of breath, chest pain, abdominal pain, bleeding, fevers, or worsening of medical condition. Patient was counseled about treatment plan, medications, possible side effects, patientverbalized understanding. All questions were answered to the best of my ability. This discharge took greater then 30 minutes in planning, reviewing documentation, counseling the patient, and discussing with other team members." MESERET QUIROZ MD Feb 19, 2025 08:07
== END 2025-02-18 10:36 | disposition home or self-care (01) ==
LOC: ER 21:34
DX: R10.32 Left lower quadrant pain (principal); R10.31 Right lower quadrant pain; K59.00 Constipation, unspecified; N28.9 Disorder of kidney and ureter, unspecified; Z79.899 Other long term (current) drug therapy
CPT/HCPCS: 36415; 74176; 80053; 81001; 83605; 84484; 85025